=== PATIENT | female | born 1990 | race American Indian/Alaskan Native ===

== ENCOUNTER 2016-09-28 16:50 | Emergency (ER) | payer SELFPAY ==
[2016-09-28 17:22] VITALS: BP 118/73
--- NOTE | 2016-09-28 19:34 | Emergency Department Report ---
- General Chief Complaint: Upper Respiratory Infection Stated Complaint: HEAD COLD,CHEST PAIN Time Seen by Provider: 09/28/16 19:19 Source: patient Mode of arrival: Ambulatory Limitations: No Limitations - History of Present Illness Initial Comments: 25 year old female presents to ED with runny nose, pleuritic chest pain, productive cough, and bodyaches. Patient is stable, neurologically intact and in no acute distress. MD Complaint: cough, rhinorrhea, nasal congestion -: Gradual Severity: mild Quality: aching, other (pleuritic) Consistency: intermittent Worsens With: deep breaths Associated Symptoms: chills, headache, rhinorrhea, nasal congestion, cough. denies: fever, nausea, vomiting, diarrhea - Related Data Home Medications Medication Instructions Recorded Confirmed Last Taken No Known Home Medications [No 02/14/16 02/14/16 Unknown Reported Home Medications] Allergies Allergy/AdvReac Type Severity Reaction Status Date / Time No Known Allergies Allergy Unverified 02/14/16 11:30 ED Review of Systems ROS: Stated complaint: HEAD COLD,CHEST PAIN Other details as noted in HPI Constitutional: denies: chills, fever Eyes: denies: eye pain, eye discharge, vision change ENT: congestion. denies: ear pain, throat pain Respiratory: cough, wheezing. denies: shortness of breath Cardiovascular: denies: chest pain, palpitations Endocrine: no symptoms reported Gastrointestinal: denies: abdominal pain, nausea, diarrhea Genitourinary: denies: urgency, dysuria, discharge Musculoskeletal: denies: back pain, joint swelling, arthralgia Skin: denies: rash, lesions Neurological: denies: headache, weakness, paresthesias Psychiatric: denies: anxiety, depression Hematological/Lymphatic: denies: easy bleeding, easy bruising ED Past Medical Hx - Past Medical History Previous Medical History?: Yes Additional medical history: anemia - Surgical History Past Surgical History?: No - Social History Smoking Status: Current Every Day Smoker Substance Use Type: None - Medications Home Medications: Home Medications Medication Instructions Recorded Confirmed Last Taken Type No Known Home Medications [No 02/14/16 02/14/16 Unknown History Reported Home Medications] ED Physical Exam - General Limitations: No Limitations General appearance: alert, in no apparent distress - Head Head exam: Present: atraumatic, normocephalic - Eye Eye exam: Present: normal appearance - ENT ENT exam: Present: normal exam, mucous membranes moist, TM's normal bilaterally - Neck Neck exam: Present: normal inspection, full ROM - Respiratory Respiratory exam: Present: normal lung sounds bilaterally. Absent: respiratory distress, wheezes - Cardiovascular Cardiovascular Exam: Present: regular rate, normal rhythm. Absent: systolic murmur, diastolic murmur, rubs, gallop - GI/Abdominal GI/Abdominal exam: Present: soft, normal bowel sounds. Absent: tenderness, guarding, rebound - Extremities Exam Extremities exam: Present: normal inspection, full ROM - Back Exam Back exam: Present: normal inspection, full ROM - Neurological Exam Neurological exam: Present: alert, oriented X3, normal gait - Psychiatric Psychiatric exam: Present: normal affect, normal mood - Skin Skin exam: Present: warm, dry, intact, normal color. Absent: rash ED Course Vital Signs 09/28/16 17:15 Temperature 98.1 F Pulse Rate 106 H Respiratory 18 Rate Blood Pressure 118/73 O2 Sat by Pulse 100 Oximetry ED Medical Decision Making - Medical Decision Making 25 year old female presents to ED. Patient states she would like to leave and sign out AMA because she has to take care of family issues. patient completely understands risks of leaving AMA and family at bedside understands as well. I have offered patient breathing treatment and Chest xray for her mild wheezing symptoms and IM steroids during ED visit and patient has refused. patient states she will continue her home remedies. patient understands that risks of leaving ED without proper treatment could potentially include , loss of function or paralysis. patient understands to return to ED if symptoms persist or worsen and understands that ED is open 24 hours. patient is neurologically intact and in no acute distress and fully capable of making decisions for herself. Critical care attestation.: If time is entered above; I have spent that time in minutes in the direct care of this critically ill patient, excluding procedure time. ED Disposition Clinical Impression: URI (upper respiratory infection) Qualifiers: URI type: unspecified viral URI Qualified Code(s): J06.9 - Acute upper respiratory infection, unspecified Disposition: LEFT AGAINST MEDICAL ADVICE Is pt being admited?: No Does the pt Need Aspirin: No Condition: Undetermined Additional Instructions: Please return to ED today for evaluation of flu like symptoms. Referrals: PRIMARY CARE, [Primary Care Provider] - 3-5 Days Forms: Work/School Release Form(ED)
== END 2016-09-28 19:59 | disposition left against medical advice (07) ==
LOC: ED 16:50
DX: J06.9 Acute upper respiratory infection, unspecified (principal)
CPT/HCPCS: 99282